=== PATIENT | female | born 1955 | race Caucasian/White ===

== ENCOUNTER 2016-08-29 05:43 | Day surgery (SDC) | payer OTHER ==
[~2016-08-29] VITALS: Ht 162.6 cm; Wt 71.4 kg
[2016-08-29] VITALS (11 sets, daily range): BP systolic 121–142; BP diastolic 65–75; PULSE 72–78; RESP 14–17; O2SAT 95–100
[~2016-08-29 05:43] MED LIST: ATOR20TA PO; CEFAZOLIN IV ONE; DEXTROSE 5% IV ONE; GABA-502 PO; HYDR-3825 PO; KEN25CR TP; KETO10TA PO; Lactated Ringer's 1,000 ML IV ONE; MELO7.5O PO; OXYC-466 PO; ROB500 PO; VARE1TAB21 PO
[2016-08-29] MEDS ORDERED: Propofol 10,000 mCg/mL 20 mL Inj ONE (05:44)
[2016-08-29] MEDS ORDERED: fentaNYL-PF 50 mCg/mL 2 mL Inj ONE (05:44)
[2016-08-29] MEDS ORDERED: Ondansetron 2 mg/mL 2 mL Inj ONE (05:44)
[2016-08-29] MEDS ORDERED: CeFAZolin Inj 2,000 MG in Dextrose 5% 50 ML IV ONE (06:00)
[2016-08-29] MEDS ORDERED: CeFAZolin Inj 2 gm / 50mL D5W IV ONE (06:05)
[2016-08-29] MEDS ORDERED: MULT-1018 PO (06:46)
[2016-08-29] MEDS ORDERED: vit d PO (06:46)
--- NOTE | 2016-08-29 07:21 | PCM.HPANE ---
Patient Data Date of Service: Aug 29, 2016 Surgeon Admitting Provider: Attending Provider:Everton Yu DPM Primary Care Physician:Alex Maurer MD Other Provider:Juan Guan Anesthesia Reason for Visit Left Foot Hallux Valgus And Hammer Toes Ht/WT & BMI Height (Feet): 5 Height (Inches): 4.00 Weight (Kilograms): 71.360 Body Mass Index 26.00 Allergies Coded Allergies: No Known Allergies (Unverified , 08/28/16) Past Anesthesia History Anesthesia History: Denies:: Abnormal Airway, Anesthesia Reactions, Difficult Intubation, Malignant Hyperthermia Diabetes History Hx Diabetes?: No MRSA MRSA: No Medications Home Meds Incl Beta Milind: No Reported Medications [vit d] No Conflict Check Po Daily 08/29/16 Multivitamin (Multi Vitamin Daily)1 Each Tablet1 Each PO DAILY 30 Days Ref 0 08/29/16 Hydrocodone-Acetaminophen 7.5-325 mg 1 Each Tablet1 Tablet PO Q6H PRN For Pain Ref 0 08/28/16 Methocarbamol 500 Mg [id number] Mg PO QID PRN PRN 08/28/16 Ketorolac Tromethamine 10 Mg [id number] Mg PO QID PRN PRN 30 Days POSTOP 08/28/16 oxyCODONE-Acetaminophen 10-325 mg 1 Each Tablet1 Tablet PO Q4H PRN For Pain Ref 0 ALSO ORDERED POSTOP 08/28/16 Atorvastatin (Lipitor)20 Mg Rcuviz59 Mg PO DAILY Ref 0 08/28/16 Triamcinolone Acet (Triamcinolone Acetonide Cream)1 Applic/0.25 Gm Cr1 Applic TP BID #60 GM Ref 0 0.1% 08/28/16 Varenicline Tartrate (Chantix)1 Each Tab.ds.pk1 Each PO BID 08/28/16 Discontinued Reported Medications Meloxicam 7.5 Mg/5 Ml Oral.susp15 Mg PO DAILY 30 Days 08/28/16 Gabapentin 300 Mg [id number] Mg PO TID Ref 0 08/28/16 History History of ENT Problems?: No HEENT History: Positive for:: Sinus Problem (HX SINUSITIS) Denies:: Abnormal Airway Cataracts Difficult Intubation Dysphagia Glaucoma Hearing Problem TMJ Denture Type: Full- Upper Full- Lower Teeth Condition: Missing Teeth Other HEENT Pertinent History: S/P T&A Hx of Heart Problems?: Yes Cardiovascular History: Denies:: AICD Abdominal Aortic Aneurism Atrial Fibrillation Cardiac Surgery Chest Pain Congestive Heart Failure Coronary Artery Disease Edema Heart Murmur Hypertension (HYPERLIPIDEMIA) Irregular Heartbeat Pacemaker Peripheral Vascular Rheumatic Fever Thrombophlebitis Valvular Heart Disease Hx of Respiratory Problem?: No Respiratory History: Denies:: Asthma COPD Chest Surgery Cough Dyspnea Emphysema Hemoptysis Oxygen Administration Pneumonia Pulmonary Embolism Tuberculosis Use of C-PAP Machine Use of Inhalers / NEBS Hx Neurologic Problems?: No Neurological History: Denies:: Alzheimer's Disease CVA Dementia Dizziness Headaches Multiple Sclerosis Parkinson's Disease Peripheral Neuropathy Seizures TIA Hx of GI Problems?: Yes Gastrointestinal History: Denies:: Cirrhosis Diverticulitis Gall Bladder Disease Gastroesphageal Reflux Gastrointestinal Bleeding Heartburn Hepatitis Hiatal Hernia Liver Disease Rectal Bleeding Other GI Pertinent History: S/P APPY Hx of Problems?: No Genitourinary History: Denies:: HX of Hemodialysis Kidney Stones Urinary Tract Infection Female Hx: Denies:: Currently (S/P BTL) Endometriosis Pelvic Inflammatory Problems with Breasts? Skin History: Positive for:: History Skin Disorders? (ECZEMA LT HAND) Hx Musculoskeletal Problems?: Yes Musculoskeletal History: Positive for:: Musculoskeletal Trauma (LT BUNION/ HAMMERTOES/TENDON DISRUPTION=CURRENT PROBLEM) Denies:: Back Injury (C/OF LOWER BACK PAIN) Degenerative Joint Fibromyalgia Joint Replacement Myasthenia Gravis Osteoarthritis Rheumatoid Arthritis Systemic Lupus Hx of Psycho/Social Problems?: Yes Psycho Social History: Positive for:: Anxiety Denies:: Bipolar Disorder Hx Depression Suicide Attempt Hx Surgeries?: Yes (COLON RESECTION, T&A, APPY, BTL) Hx Any Other Health Problems?: Yes Other History: Denies:: Cancer Endocrine Disease Hospitalization Thyroid Disease Hx Diabetes: No Hx Alcohol Use: NoHx Substance Use: No Smoking Status: Current Every Day Smoker Have You Smoked inLast 12 mo: Yes (TRYING TO QUIT W/ CHANTIX)Approx How Many Cigarettes/day: 1/2 PPD Stop/Bang S-Snoring: Do You Snore Loudly: No T-Tired: feel tired, fatigued: No O-Obsered: Observed not breath: No P-Blood Pressure: treated: No B- Body Mass Index > 35 kg/m2: No A- Age over 50: Yes N- Neck Large Circumference: No G- Gender Male: No CROW Total Score: 1 Risk Assessment Category Category 1A: Patient has history of documented sleep apnea, and HAS NOT received any narcotic, sedative or anesthesia administration during this stay. Category 1B: Patient has history of documented sleep apnea, and HAS received any narcotic , sedative or anesthesia administration during this stay Category 2: Patient has SUSPECTED Obstructive Sleep Apnea, and HAS received any narcotic , sedative or anesthesia administration during this stay. Category 3: Patient has SUSPECTED Obstructive Sleep Apnea and HAS NOT received narcotic, sedative or anesthesia administration during this stay. Category 4: Outpatient in Procedural Areas with known sleep apnea or who screen positive for High Risk via the STOP/BANG questionnaire. Exam Exam Vital Signs Vital Signs Date Time Temp Pulse Resp B/P Pulse Ox O2 Delivery O2 Flow Rate FiO2 08/29/16 06:38 36.6 78 16 121/69 95 Room Air 08/29/16 06:18 36.6 78 16 121/69 95 Room Air General Appearance: Alert HEENT/AIRWAY: MP 2 Lungs: Clear to Auscultation Heart: Exam Unremarkable Meds/Labs/Diagnostics Admission Meds Current Medications Lactated Ringer's (Lr) 1,000 ml @ 120 mls/hr Q8H20M ONCE IV Last administered on 08/29/16t 05:52; Start 08/29/16 at 01:00; Stop 08/29/16 at 09:19 Plan Impression Patient chart reviewed, patient interviewed and anesthestic plan with risks, benefits, and alternatives discussed, and informed consent obtained. ASA Physical Status: ASA2 Mod Systemic Disease Anesthetic Support Modalities: Hemodynamic Monitoring Anesthetic Plan: GA Bene/Risks/Altern/Consents: Yes HP Complete Prior to Induction: Yes Lionel Wallace MD Aug 29, 2016 07:21
[2016-08-29] MEDS ORDERED: Lactated Ringer's 500 ML IV PRN (08:01)
[2016-08-29] MEDS ORDERED: Lactated Ringer's 1,000 ML IV SCH (08:01)
[2016-08-29] MEDS ORDERED: Bupivacaine-MPF 0.5% 30 mL Inj INFILTRATE ONE (08:03)
[2016-08-29] MEDS ORDERED: Dexamethasone 4 mg/mL Inj IVPUSH PRN (08:05)
[2016-08-29] MEDS ORDERED: MetoCLOpramide 5 mg/mL 2 mL Inj IVPUSH PRN (08:05)
[2016-08-29] MEDS ORDERED: EPHEDrine Sulfate 50 mg/mL Inj IVPUSH PRN (08:05)
[2016-08-29] MEDS ORDERED: HYDROmorphone 1 mg/mL Inj IVPUSH PRN (08:05)
[2016-08-29] MEDS ORDERED: Phenylephrine 10,000 mCg/mL Inj IVPUSH PRN (08:05)
[2016-08-29] MEDS ORDERED: fentaNYL-PF 50 mCg/mL 2 mL Inj IVPUSH PRN (08:05)
[2016-08-29] MEDS ORDERED: Ondansetron 2 mg/mL 2 mL Inj IVPUSH PRN (08:05)
--- NOTE | 2016-08-29 10:41 | PCM.PODPO ---
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 #4 reducible hammertoe fourth digit left foot Post Operative Diagnosis Same Procedure #1 Chevron osteotomy with fibular sesamoidectomy and screw fixation left #2 Caleb osteotomy with screw fixation proximal phalanx of hallux left #3 metatarsal head resection 2 and 3 left #4 arthrodesis PIPJ second and third digits left #5 percutaneous flexor tenotomy fourth digit left Surgeon Surgeon: Everton Yu DPM Assistants: None Indication for Procedure Severe left forefoot deformity and pain Findings Same, arthrosis second and third metatarsal phalangeal joint, marginal bone quality Details of Procedure The patient was placed on the table in the supine position and surgical timeout observe. Upon initiation of general anesthesia by the anesthesiologist the left forefoot was anesthetized utilizing 0.5% Marcaine plain via nail and proximal digital blocks. A well-padded pneumatic ankle tourniquet was applied and the foot prepped and draped in the usual aseptic manner. Exsanguination was achieved utilizing an Esmarch bandage, the cuff was inflated and attention directed to the medial first metatarsophalangeal joint which showed a severe nonreducible hallux abductovalgus deformity. A 5 cm curvilinear medial incision was made at the distal first metatarsal and metatarsophalangeal joint and deepened via sharp and blunt dissection. Uses was deepened via sharp and blunt dissection a curvilinear periosteal and capsular incision made. Hypertrophic medial eminence was exposed and resected and bone density was assessed and noted to be somewhat soft and low-density therefore decision was made to proceed with modified Chevron rather than scarf osteotomy. The fibular sesamoid was excised. A medial to lateral Chevron shaped osteotomy was performed in the first metatarsal head neck with the apex oriented distally and dorsal arm longer than plantar. The capital fragment was displaced laterally 5 mm, slightly impacted and fixated utilizing 22.0 cortical screws with good distal screw purchasing compression of the osteotomy noted. The remaining medial bony shelf was remodeled as well as the dorsomedial aspect of the first metatarsal head. As anticipated there was significant residual valgus malalignment at the first metatarsophalangeal joint and the decision was made to proceed with the Caleb osteotomy the proximal phalanx. An approximately 3 cm dorsomedial linear incision was made overlying the proximal phalanx medial to the long extensor tendon and deepened via sharp and blunt dissection. The dorsum of the phalanx was exposed and a long oblique apical osteotomy performed with the base distal medial and apex proximal medial. The osteotomy was feathered closed and fixated utilizing 2 2.0 cortical screws with reasonable but not robust distal screw purchase and compression of the osteotomy noted. Both sites were copiously irrigated with antibiotic solution medial capsulorrhaphy was performed with the hallux held in rectus alignment and closed with 3-0 Vicryl. Subcutaneous tissues were closed with 4-0 Vicryl skin with 4-0 Prolene. Attention was then directed to the dorsal second digit and second metatarsal phalangeal joint. Approximate 5 cm dorsal linear incision was made overlying the second MPJ and second toe. This was deepened via sharp and blunt dissection. The extensor tendon at the level of the dislocated second MPJ was tenotomized and a long Z fashion and a dorsal capsulotomy performed. There was noted to be significant denuding of the hyalin cartilage and exposure of subchondral bone as well as periarticular osteophytes and this is decision was made in light of the bone quality and severe arthrosis of the joint to proceed with second metatarsal head resection rather than while osteotomy. The second metatarsal was transected and the capital fragment removed. Dissection continued at the PIPJ level where a dorsal U shaped tenotomy and capsulotomy was performed, the articular surface was resected, underlying bone fenestrated and a 0.045 inch K wire was inserted retrograde exiting the toe and inserted through the PIPJ arthrodesis site and across the metatarsal phalangeal joint space with the toe held in rectus alignment and good compression of the arthrodesis site noted. This procedure was then performed at the third metatarsophalangeal joint and third digit without exceptions deletions or modifications. The extensor tendon was repaired with 4-0 Vicryl, subcutaneous tissues were reapproximated with 4-0 Vicryl and the K wire was cut bent and capped distally. Attention was then directed to the plantar fourth digit where a 3 mm transversely oriented stab incision was made at the plantar DIPJ and the long flexor tendon released. The site was closed with a single 4-0 Prolene suture. Additional 10 cc 0.5% Marcaine was infiltrated to all sites and antibiotic ointment Adaptic dressing applied. The tourniquet had been released intraoperatively and normal perfusion returned to all digits. Mildly compressive gauze bandage was applied, the patient was extubated uneventfully and left the operating suite apparently satisfactory condition. There were no complications. Grafts, Implants: None Complications There were no periprocedural complications identified. Condition Stable Anesthetic Administered: GA Drains: None Catheters: None Output, Estimated Blood Loss: 10 Blood Admin during surgery: No Surgical Cast or Splint: Post-op Boot Surgical Specimen Removed: No Specimen sent to Pathology: No Post Operative Plan Postoperative instructions have been dispensed and reviewed verbally patient will return for follow-up as an outpatient in 5 days as scheduled. Everton Yu DPM Aug 29, 2016 10:41
--- NOTE | 2016-08-29 10:51 | PCM.ANEP1 ---
Post Anesthesia Phase 1 PACU Phase 1 Assessment Date of Service: Aug 29, 2016 Vital Signs Vital Signs Date Time Temp Pulse Resp B/P Pulse Ox O2 Delivery O2 Flow Rate FiO2 08/29/16 10:40 74 15 130/69 95 Room Air 08/29/16 10:35 77 15 129/65 96 Room Air 08/29/16 10:30 78 16 128/73 97 Room Air 08/29/16 10:25 78 17 142/69 100 Room Air 08/29/16 10:20 36.3 78 17 131/69 100 Simple Mask 8 08/29/16 06:38 36.6 78 16 121/69 95 Room Air 08/29/16 06:18 36.6 78 16 121/69 95 Room Air Anesthetic Administered: GA Level of Alertness: Awake, talking NEUMANN's with Equal Strength: Yes Pain: No Nausea or Vomiting: No Cardiovascular Function and Hy: Yes Airway Device: Oralpharangeal Airway Oxygen Delivery: Simple Mask Lungs: Clear to Auscultation Dermatome Level: Full Sensation Complications: No Follow up Care: No Patient Instructions Provided: Yes Lionel Wallace MD Aug 29, 2016 10:51
[2016-08-29] MEDS ORDERED: Ketorolac 15 mg/mL Inj ONE (10:52)
== END 2016-08-29 23:59 | disposition home or self-care (01) ==
LOC: SAS 05:43
PROVIDERS: ATTEND Podiatrist
DX: M20.12 Hallux valgus (acquired), left foot (principal); M20.42 Other hammer toe(s) (acquired), left foot; M19.072 Primary osteoarthritis, left ankle and foot; E78.5 Hyperlipidemia, unspecified; F43.0 Acute stress reaction; F41.9 Anxiety disorder, unspecified; M54.6 Pain in thoracic spine; F17.210 Nicotine dependence, cigarettes, uncomplicated
CPT/HCPCS: 28010; 28285; 28288; 28299; C1713; J0690; J1885; J2405; J3010; J7120